=== PATIENT | female | born 1995 | race Caucasian/White ===

== ENCOUNTER 2018-01-30 14:02 | Day surgery (SDC) | payer OTHER ==
[~2018-01-30] VITALS: Ht 157.5 cm; Wt 46.5 kg
[~2018-01-30 14:02] MED LIST: DESYREL 50MG50 MG PO; XANAX .25M0.25 MG/TA PO; XANAX 1MG1 MG PO; XANAX XR3 MG PO
[2018-01-30] MEDS ORDERED: PRIL40 PO (14:47)
[2018-01-30] MEDS ORDERED: ZOFRAN ODT4 MG PO (14:47)
[2018-01-30] MEDS ORDERED: CARAFATE 1GM1 G PO (14:47)
[2018-01-30 15:03] VITALS: BP 117/87; PULSE 99; TEMP 98.6
[2018-01-30 16:35] VITALS: BP 124/83; PULSE 98; TEMP 98.3
[2018-01-30 16:50] VITALS: BP 132/86; PULSE 98
[2018-01-30 17:02] VITALS: BP 117/76; PULSE 102
== END 2018-01-30 17:05 | disposition home or self-care (01) ==
LOC: SDCO 14:02
DX: R10.9 Unspecified abdominal pain (principal); R11.2 Nausea with vomiting, unspecified; K29.30 Chronic superficial gastritis without bleeding
CPT/HCPCS: J2250; J3010; J7030

== ENCOUNTER → 2018-03-04 | Outpatient (CLI) | payer OTHER ==
[~2018-03-04] MED LIST changes: +CARAFATE 1GM1 G PO; +PRIL40 PO; +ZOFRAN ODT4 MG PO
== END ==
LOC: COL.RAD 07:54
DX: K59.00 Constipation, unspecified (principal); R19.7 Diarrhea, unspecified; R63.0 Anorexia
CPT/HCPCS: A9537